=== PATIENT | male | born 1995 | race Caucasian/White ===

== ENCOUNTER 2017-09-07 22:21 | Emergency (ER) | payer BC ==
[2017-09-07 22:57] VITALS: BP 119/78; PULSE 83; TEMP 102.2; BMI 25.1
[2017-09-08] MEDS ORDERED: ACETAMINOPHEN 325 MG TABLET (FP) PO ONE (02:47)
--- NOTE | 2017-09-08 02:50 | PDOC ---
History of Present Illness - General Chief Complaint: Sore Throat Stated Complaint: COLD SYMPTOMS Time Seen by Provider: 09/08/17 02:36 - History of Present Illness Initial Comments: 09/08/17 03:33 The patient is a 22 year old male with no significant PMH who presents for evaluation of sore throat. The patient reports a 2 day history of sore throat and nasal congestion with associated fevers to 102. He presented to an urgent care 2 days ago and was prescribed tamiflu and augmentin for a presumed influenza like-illness and strep throat. He reports continued symptoms and fevers today prompting his presentation to the ED for evaluation. He denies any chills, cough, SOB, chest pain, nausea, vomiting, abdominal pain, or changes with urination or bowel movements. Past History - Past Medical History Allergies/Adverse Reactions: Allergies Allergy/AdvReac Type Severity Reaction Status Date / Time No Known Allergies Allergy Verified 09/07/17 22:54 Home Medications: Ambulatory Orders Clindamycin [Cleocin -] 300 mg PO TID #21 capsule 09/08/17 COPD: No Other medical history: Pt denies - Suicide/Smoking/Psychosocial Hx Smoking History: Current every day smoker Have you smoked in the past 12 months: Yes Number of Cigarettes Smoked Daily: 10 Information on smoking cessation initiated: No Hx Alcohol Use: No Drug/Substance Use Hx: No Substance Use Type: None Review of Systems - Review of Systems Comments:: 09/08/17 03:53 Constitutional: Fevers. No chills, fatigue, malaise HEENT: Rhinorrhea, nasal congestion, Sore throat. No visual changes Cardiovascular: No chest pain, syncope, palpitations, lightheadedness Respiratory: No Cough, SOB, Hemoptysis, Gastrointestinal: No Abdominal pain, Nausea, Vomiting, Constipation, Diarrhea, Melena Genitourinary: No Dysuria, Frequency, Urgency, Hesitancy, Hematuria, Flank pain Musculoskeletal: No Myalgia, arthralgia Skin: No rashes, itching, bruising, pallor Neurologic: No Headache, Dizziness, Numbness, Weakness, or Tingling Psychiatric: No Hallucinations. No SI or HI *Physical Exam - Vital Signs Last Vital Signs Temp Pulse Resp BP Pulse Ox 102.2 F H 83 20 119/78 97 09/07/17 22:55 09/07/17 22:55 09/07/17 22:55 09/07/17 22:55 09/07/17 22:55 - Physical Exam Comments: 09/08/17 03:54 General Appearance: Nourished. No Apparent Distress HEENT: EOMI, LV. Mild Pharyngeal Erythema, Tonsillar Exudate, No Tonsillar Erythema Neck: No Cervical Lymphadenopathy Respiratory/Chest: Lungs Clear, Normal Breath Sounds. No Crackles, Rales, Rhonchi, Wheezing Cardiovascular: Regular Rhythm, Regular Rate. No Murmur, Gallops, Rubs Gastrointestinal/Abdominal: Normal Bowel Sounds, Soft. No Guarding, Rebound, Tenderness Musculoskeletal: No CVA Tenderness Extremity: Normal Capillary Refill Integumentary: Normal Color, Dry, Warm Neurologic: Fully Oriented, Alert, Normal Mood/Affect, Normal Response, Medical Decision Making - Medical Decision Making 09/08/17 03:55 The patient is a 22 year old male with no significant PMH who presents for evaluation of sore throat. Given the patient history, it is likely the patient' s symptoms are due to a bacterial pharygitis and influenza-like illness. The patient is a smoker which is likely contributing to his illness not clearing. We will switch the patient's antibiotic to clindamycin and will treat the patient's fever with tylenol here in the ER. We discussed with the patient the plan as well as return precautions and the patient voiced understanding and is agreeable with the plan. We are comfortable discharging the patient home at this time with ENT follow up. *DC/Admit/Observation/Transfer Diagnosis at time of Disposition: Acute pharyngitis Qualifiers: Pharyngitis/tonsillitis etiology: unspecified etiology Qualified Code(s): J02.9 - Acute pharyngitis, unspecified - Discharge Dispostion Disposition: HOME Condition at time of disposition: Good Admit: No - Prescriptions Prescriptions: Clindamycin [Cleocin -] 300 mg PO TID #21 capsule - Referrals Referrals: Lefty Triplett [Primary Care Provider] - Edmund Briceño MD [Staff Physician] - - Patient Instructions Printed Discharge Instructions: DI for Pharyngitis/Tonsillopharyngitis -- Adult Additional Instructions: Please return to the ER if you experience concerning or worsening symptoms including worsening fevers, chills, difficulty breathing or vomiting. Your symptoms are likely due to a pharygitis. We have sent a prescription to your pharmacy for clindamycin that you should take 300mg three times a day with meals for 7 days. You may also use tylenol and ibuprofen to help manage your fevers at home. Please call to schedule a follow up appointment with our ENT specialist within 2-3 days to discuss further management of your symptoms. - Post Discharge Activity
--- NOTE | 2017-09-08 03:10 | PDOC ---
Attending Attestation - Resident Resident Name: Joseph Ornelas - ED Attending Attestation I have performed the following: I have examined & evaluated the patient, The case was reviewed & discussed with the resident, I agree w/resident's findings & plan, Exceptions are as noted - Physicial Exam PE: 09/08/17 03:10 *Physical Exam General Appearance: Yes: Appropriately Dressed. No: Apparent Distress, Intoxicated HEENT: positive: EOMI, LV, Normal ENT Inspection, Normal Voice, TMs Normal, Pharynx slight erythema no droolign or hot potato voice negative: Pale Conjunctivae, Photophobia, Scleral Icterus (R), Scleral Icterus (L) Neck: positive: Trachea midline, Normal Thyroid, Supple. negative: Tender, Rigid, Carotid bruit, Stridor, Lymphadenopathy (R), Lymphadenopathy (L), Thyromegaly Respiratory/Chest: positive: Lungs Clear, Normal Breath Sounds. negative: Chest Tender, Respiratory Distress, Accessory Muscle Use, Labored Respiration, RES, Crackles, Rales, Rhonchi, Stridor, Wheezing, Dullness Cardiovascular: positive: Regular Rhythm, Regular Rate, S1, S2. negative: Edema , JVD, Murmur, Bradycardia, Tachycardia Vascular Pulses: Dorsalis-Pedis (R): 2+, Doralis-Pedis (L): 2+ Gastrointestinal/Abdominal: positive: Normal Bowel Sounds, Flat, Soft. negative : Tender, Organomegaly, Pulsatile Mass, Increased Bowel Sounds, Decreased BS, Distended, Guarding, Rebound, Hernia, Hepatomegaly, Spleenomegaly Lymphatic: negative: Adenopathy, Tenderness Musculoskeletal: positive: Normal Inspection. negative: CVA Tenderness, Decreased Range of Motion Extremity: positive: Normal Capillary Refill, Normal Inspection, Normal Range of Motion, Pelvis Stable. negative: Tender, Pedal Edema, Swelling, Erythema Integumentary: positive: Normal Color, Dry, Warm. negative: Cyanotic, Erythema , Jaundice, Rash Neurologic: positive: s iron worker II-XII NML intact, Fully Oriented, Alert, Normal Mood/ Affect, Motor Strength 5/5. negative: EOM Palsy, Facial Droop, Sensory Deficit <Gee Gaviria - Last Filed: 09/08/17 03:02> - HPI HPI: 09/08/17 04:38 Patient is a 22 year old male with no significant past medical history who presents to the ED with complaints of sore throat that began 2 days ago. Patient reports experiencing sore throat 2 days ago while at home. He reports going to the urgent care center for his throat pain and was treated for Flu virus and was given Tamiflu and augmentin. Patient reports coming into the ED for further evaluation when the symptoms did not begin to subside. He reports experiencing associated symptoms of fever at 102, stating he has been taking advil for his fever with minimal relief. Denies chest pain, Sob. Denies nausea, vomiting. Denies contact with sick individuals, out of state travelling. Denies trauma to affected area. Denies any other symptoms. Allergies: None Social history: Current smoker. No alcohol. No illicit drugs Surgical history: none PMD: none - Medical Decision Making 09/08/17 04:38 Documentation prepared by Irineo Loo, acting as medical assistant supervisor for Gee Gaviria MD/DO. <Irineo Loo - Last Filed: 09/08/17 04:38>
[2017-09-08] MEDS ORDERED: ACETAMINOPHEN 325 MG TABLET (FP) ONE (03:20)
== END 2017-09-08 03:32 | disposition home or self-care (01) ==
LOC: JER 22:21
DX: J02.9 Acute pharyngitis, unspecified (principal); F17.210 Nicotine dependence, cigarettes, uncomplicated
CPT/HCPCS: 87070; 87430; 99281-25